=== PATIENT | female | born 1995 | race Two or more races ===

== ENCOUNTER 2024-02-07 01:15 | Emergency (ER) | payer OTHER ==
[~2024-02-07] VITALS: Ht 162.6 cm; Wt 86.2 kg
[2024-02-07] MEDS ORDERED: ZIPSOR25 MG (01:29)
[2024-02-07] MEDS ORDERED: ZANAFLEX2 M1 (01:29)
[2024-02-07 01:31] VITALS: BP 111/76; O2SAT 100
[2024-02-07] MEDS ORDERED: KETOROLAC TROMETHAMINE 60 MG VIAL IM STA (03:10)
[2024-02-07] MEDS ORDERED: DICLOFENAC POTA50 MG PO (03:43)
== END 2024-02-07 03:51 ==
LOC: ER 01:17
DX: M25.572 Pain in left ankle and joints of left foot (principal); M77.32 Calcaneal spur, left foot